=== PATIENT | male | born 2000 | race Caucasian/White ===

== ENCOUNTER 2019-06-20 21:22 | Emergency (ER) | payer MEDICAID, SELFPAY ==
[2019-06-20 21:24] VITALS: BP 136/81; PULSE 119; RESP 16; TEMP 36.6; O2SAT 100; BMI 25.4
--- NOTE | 2019-06-20 21:34 | ED.VIS.GEN ---
History of Present Illness Chief Complaint: Laceration Informant: Patient Onset: Today Context: Sudden Onset Timing: Continuous Current Severity: Mild Maximum Severity: Mild Narrative: The patient is an otherwise healthy 19-year-old male unsure of his last tetanus who presents with laceration to his thumb. He states he was moving a refrigerator and it pinched against his skin. He had some bleeding. He denies other injury. He is left-hand dominant. He is otherwise been in his normal state of health. Prior similar symptoms: No Recent Illness/Hospitalization: No Past Medical History - Allergies and Home Meds Allergies/Adverse Reactions: Allergies amoxicillin Allergy (Verified 06/20/19 21:24) Anaphylaxis Primary Care Physician: NOT,DEFINED [Primary Care Provider] - Prior records reviewed: Yes Past Medical History: None Surgical History: no surgical history Smoking Status: Never smoker Review of Systems General: Denies: Chills, Fever, Sweats Eyes: Denies: Visual changes - bilaterally, Diplopia ENT: Denies: Rhinorrhea, Sore throat Cardiovascular: Denies: Chest pain, Palpitations Respiratory: Denies: Dyspnea, Cough, Dyspnea on exertion Gastrointestinal: Denies: Abdominal pain, Nausea, Vomiting, Diarrhea, Melena, Hematochezia Genitourinary: Denies: Dysuria, Hematuria, Frequency Musculoskeletal: Denies: Back pain, Extremity Pain Skin: Denies: Rash, Wounds Neurological: Denies: Headache, Weakness, Numbness Physical Exam Vital Signs/Narrative: Vital Signs Temp Pulse Resp BP Pulse Ox 06/20/19 21:24 98 F 119 H 16 136/81 H 100 Inital Vital Signs reviewed: Yes General: Well nourished, Well developed, No Acute Distress Head: Normocephalic, Atraumatic Eyes: Perrl, EOMI ENT: Moist mucous membranes, No rhinorrhea Neck: Supple, Nontender Cardiovascular: Regular rate, Regular rhythm, No murmurs Respiratory: No distress, CTA bilaterally, Chest nontender Abdomen: Soft, Nontender, Nondistended, Normal bowel sounds Back: Nontender, Normal Inspection Extremities: No edema, Tenderness - Patient is a 0.5 cm laceration just at the webspace of the left thumb near the MTP joint. His two-point discrimination is preserved. There is no active bleeding. Cap refill is less than 2 seconds. Skin: Normal color, No rash Neurological: Alert, Oriented x3, Cranial nerves II-XII grossly intact, Normal Strength, Normal Sensation Psychological: Normal affect, Normal Mood Diagnostic/Tx/Re-eval - Medical Decision Making The patient's tetanus was updated. His wound was irrigated and cleaned. It was not gapping. There is no active bleeding. I did feel that Dermabond closure will be appropriate. This was done without issue. The patient was counseled on local wound care. He will be discharged home. Impression 1. A 0.5 cm left thumb laceration with Dermabond repair ED Disposition - Plan for ED Patient: Instructions: LACERATION, Extremity (Skin Glue) Referrals: NOT,DEFINED [Primary Care Provider] -
[2019-06-20] MEDS: Diphth,Pertuss(Acell),Tet Vac 0.5 ML Vial IM (21:40)
[2019-06-20 21:43] VITALS: RESP 16
== END 2019-06-20 22:01 | disposition home or self-care (01) ==
PROVIDERS: Emergency Provider Emergency Medicine
DX: S61.012A Laceration without foreign body of left thumb without damage to nail, initial encounter (principal); W23.0XXA Caught, crushed, jammed, or pinched between moving objects, initial encounter; Y93.89 Activity, other specified
CPT/HCPCS: 12001; 90471; 90715; 99282

== ENCOUNTER 2024-12-25 06:53 | Emergency (ER) | payer SELFPAY ==
[2024-12-25 06:53] VITALS: BP 159/96; PULSE 85; RESP 16; TEMP 36.8; O2SAT 100; BMI 29.3
--- NOTE | 2024-12-25 07:08 | EKG12_ITS ---
Test Reason : HTN Blood Pressure : */* mmHG Vent. Rate : 80 BPM Atrial Rate : 80 BPM P-R Int : 134 ms QRS Dur : 96 ms QT Int : 360 ms P-R-T Axes : 44 61 57 degrees QTcB Int : 415 ms Sinus rhythm with marked sinus arrhythmia Otherwise normal ECG Confirmed by Ross Galloway ([id number]), associate entertainment editor TIFFANIE MUSA ([id number]) on 12/29/2024 11:34:33 AM Referred By: Confirmed By: Ross Galloway
--- NOTE | 2024-12-25 07:10 | EDS_ITS ---
HPI History of Present Illness Chief Complaint: Hypertension Detail of Chief Complaint: Shaky and high blood pressure Informant: patient Narrative Narrative: Patient presents to the emergency department with complaint of feeling shaky and elevated blood pressure today. Patient states that he was at work when he started feeling shaky and felt off balance. 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 Patient states he went and sat down and had something to eat and felt better after. Still feels a little bit shaky. They did check his blood pressure and his systolic was in the 150s. Normally he does not have high blood pressure. He denies increase stressors. Denies history of anxiety or panic attacks. Denies recent illness. Denies chest pain or palpitations. Patient denies headache. PFSH PFSH Medical History no medical history Home Medications ?Medication ?Instructions ?Recorded ?Last Taken ?Type NK 06/20/19 Unknown History Allergy/AdvReac Type Severity Reaction Status Date / Time amoxicillin Allergy Anaphylaxis Verified 12/25/24 06:57 Social History (System 09/10/20 @ 10:05 by Citlali Dunne) Smoking Status: Never smoker ROS ROS ED Review of Systems ROS Unobtainable: other Constitutional Constitutional ED: Reports lethargy; Denies chills, fever(s), sweats or weight loss Eyes Eyes: Denies blurry vision, change in vision or diplopia ENT ENT ED: Denies rhinorrhea or sore throat Cardiovascular Cardiovascular: Denies chest pain, orthopnea or racing heartbeat Respiratory/Chest Respiratory/Chest: Denies cough, dyspnea, dyspnea on exertion, orthopnea or sputum Gastrointestinal Gastrointestinal: Denies abdominal pain, diarrhea, nausea or vomiting Genitourinary Genitourinary ED: Denies dysuria, hematuria or urinary frequency Musculoskeletal Musculoskeletal: Denies arthralgias, back pain, myalgias or neck pain Integumentary Denies abscess, Abrasions or rash Neurologic Neurologic: Reports other Details: Bilateral hand tremor ; Denies headache(s), paresthesias or weakness Psychiatric Psychiatric: Denies anxiety, depression or suicidal thoughts Endocrine Endocrinology: Denies polydipsia, polyphagia or polyuria Hematologic/Lymphatic Hematologic/Lymphatic: Denies easy bleeding, easy bruising or lymphadenopathy Allergic/Immunologic Allergic/Immunologic ED: Denies mouth swelling, tongue swelling or urticaria EXAM Physical Exam Const Vital Signs: 12/25/24 06:53 Temperature 98.2 F Temperature Source Oral Pulse Rate 85 Respiratory Rate 16 Blood Pressure 159/96 H Blood Pressure Mean 117 Pulse Ox 100 Oxygen Delivery Method Room Air Positive well nourished and well developed General Appearance ED: well developed and NAD HEENT Reports TM's clear and moist mucous membranes normocephalic and atraumatic; Negative for trauma or tenderness Tympanic Membrane ED: Yes TM's clear Eyes PERRL and EOMs intact bilaterally General Eye ED: Negative for pale conjunctiva or scleral icterus Neck no lymphadenopathy, supple and no JVD General: Negative for tenderness Chest Wall inspection of chest normal and palpation of chest normal Chest: Negative for tenderness Resp normal respiratory effort and clear to auscultation bilaterally Effort and Inspection: Negative for respiratory distress or pain with movement Auscultation: Negative for rhonchi, wheezes or diminished lung sounds Cardio regular rate, regular rhythm, S1 normal heart sound, S2 normal heart sound and no murmurs Peripheral Pulses: pulses 2+ throughout GI normal to inspection, nondistended, normoactive bowel sounds, soft to palpation, non-tender, non-distended and no masses Back/Spine no CVA tenderness and no thoracic nor lumbar tenderness Extremity normal to inspection General Extremety ED: Negative for edema General Extremity: Negative for edema Neuro oriented x3, CN's II-XII intact bilaterally, no sensory deficits noted and gait normal Neuro Narrative: Fine tremor in both hands as he holds his hands out. No focal weakness. Finger-nose and heel chance testing within normal limits. Sensorium / Orientation: awake, alert, oriented to person, oriented to place and oriented to time Motor Exam: strength 5/5 throughout and strength abnormal Psych mental status grossly normal Skin no rashes or lesions noted and no wounds MDM MDM MDM Narrative Medical decision making narrative: Patient presents to the emergency department with a spell of feeling off balance and tremor while at work. Noted at work to have elevated blood pressure and referred to the ER. Patient does not take blood pressure medication although there is a family history of hypertension. Patient states that he started to feel better after he sat down and ate a little bit. In the differential would be orthostatic near syncope versus anxiety or hypoglycemia. IV line established. EKG obtained arrival shows sinus rhythm with rate of 80 bpm with occasional PACs. CBC with differential showed a white count of 5.7 with hemoglobin 15.4 and platelet count of 162. Chemistries unremarkable. Glucose was 115. While in the department he did receive Ativan 1 mg IV. Latest blood pressure now 140s over 90s. Clinically he looks well. He no longer has a tremor after given Ativan. I do not feel his symptoms consistent with seizure or other intracranial abnormality. Suspect possibly anxiety. Recommended monitoring his blood pressure and outpatient follow-up with primary care physician. He does not want anything for home for anxiety. I did have patient ambulate prior to discharge and patient was noted to be steady and asymptomatic throughout. We also discussed diet modification and weight loss to manage blood pressure prior to discharge. Lab Data Attestation: I reviewed the patient's lab results. Labs: Laboratory Results - last 24 hr 12/25/24 12/25/24 07:08 07:10 WBC 5.7 RBC 5.07 Hgb 15.4 Hct 44.0 MCV 86.8 MCH 30.4 MCHC 35.0 RDW Std Deviation 40.0 RDW Coeff of Anthony 12.7 Plt Count 162 MPV 9.2 Immature Gran % (Auto) 0.200 Neut % (Auto) 72.0 H Lymph % (Auto) 19.9 Walker % (Auto) 5.8 Eos % (Auto) 1.4 Baso % (Auto) 0.7 Absolute Neuts (auto) 4.1 Absolute Lymphs (auto) 1.13 Nucleated RBC % 0 Sodium 141 Potassium 4.1 Chloride 105 Carbon Dioxide 25.0 Anion Gap 11 BUN 16 Creatinine 1.00 Estim Creat Clear Calc 131.96 Est GFR (MDRD) Non-Af 106 BUN/Creatinine Ratio 15.6 Glucose 115 H Calcium 9.4 POC Glucose 108 H EKG Initial EKG: Attestation: I personally reviewed and interpreted this EKG as follows: Comments: Sinus rhythm with rate of 80 bpm with occasional PACs Discharge Plan Triage Chief Complaint: Hypertension ED Provider: Constance Roque Dx/Rx/DC Orders Clinical Impression: Hypertension, Anxiety Instructions: ED Anxiety Reaction, ED Hypertension, To Be Confirmed Prescriptions: No Action NK Primary Care Provider: Care Physician,No Primary Referrals: John Kelly MD [Med Staff - Clinical Research Management Associate] - 5-7 Days Care Physician,No Primary [Primary Care Provider] - Print Language: Citizen Of [place] Disposition Disposition: Home, Self Care
[2024-12-25 07:17] LABS: Absolute Lymphocyte Count 1.13 X10^3/uL (0.83-4.51); Absolute Neutrophil Count 4.1 X10^3/uL (2.0-7.7); Basophil# 0.04 X10^3/uL; Basophil% 0.7 % (0-1); Eosinophil# 0.08 X10^3/uL; Eosinophils% 1.4 % (0-5); Hemoglobin 15.4 g/dL (13.0-16.5); Lymphocyte # 1.13 X10^3/ul (0.83-4.51); Lymphocyte % 19.9 % (19-41); Mean Corpuscular Hgb 30.4 pg (27.0-32.0); Mean Corpuscular Volume 86.8 fL (80-94); Mean Platelet Vol. 9.2 fl (6.2-12.0); Monocyte# 0.33 X10^3/uL; Monocyte% 5.8 % (0-10); NRBC Flagged by Analyzer 0 % (0-5); Neutrophil # 4.08 X10^3/uL (2.7-7.7); Platelet Count 162 K/mm3 (150-450); RBC Distribution Width CV 12.7 % (11.6-14.6); Red Blood Count 5.07 M/mm3 (4.6-6.2); White Blood Count 5.7 K/mm3 (4.4-11.0)
[2024-12-25] MEDS: Lorazepam 2 MG/ML WCH Syringe 1 MG IV (07:20)
[2024-12-25 07:29] LABS: Bedside Glucose 108 mg/dL (74-106)
[2024-12-25 07:51] LABS: Anion Gap 11 (5-15); BUN 16 mg/dL (4-19); BUN/Creat Ratio 15.6 RATIO (10-20); Calcium,Total 9.4 mg/dL (7.6-11.0); Chloride 105 mmol/L (98-108); EST Glomerular Filtration Rate 106 (>60); Estimated Creatinine Clearance 131.96 ml/min (50-250); Glucose 115 mg/dL (70-99); Potassium 4.1 mmol/L (3.3-5.1); Sodium Level 141 mmol/L (133-145)
[2024-12-25 08:39] VITALS: BP 144/86; PULSE 81; RESP 16; TEMP 36.7; O2SAT 99
== END 2024-12-25 08:39 | disposition home or self-care (01) ==
PROVIDERS: Emergency Provider Emergency Medicine; Visit Provider Emergency Medicine
DX: I10 Essential (primary) hypertension (principal); F41.9 Anxiety disorder, unspecified; R25.1 Tremor, unspecified
CPT/HCPCS: 80048; 82962; 85025; 93005; 96374; 99283; A4216